=== PATIENT | female | born 1935 | race Caucasian/White ===

== ENCOUNTER 2019-06-21 18:10 | Observation (INO) | payer MEDICARE ==
[~2019-06-21] VITALS: Ht 162.6 cm; Wt 75.4 kg
[2019-06-21 18:43] VITALS: BP 193/71
[2019-06-21 18:50] LABS: BASO % 1 % (0-3); EOS # 0.2 x10^3/uL (0.0-0.7); EOS % 4 % (0-3); HEMATOCRIT 36.8 % (36.0-47.0); HEMOGLOBIN 12.3 g/dL (12.0-15.5); LYMPH # 0.9 x10^3/uL (1.0-4.8); LYMPH % 14 % (24-48); MEAN CORPUSCULAR HEMOGLOBIN 29 pg (25-35); MEAN CORPUSCULAR HGB CONC 33 g/dL (31-37); MEAN CORPUSCULAR VOLUME 88 fL (79-100); MONO # 0.6 x10^3/uL (0.0-1.1); MONO % 8 % (0-9); NEUT % 74 % (31-73); PLATELET COUNT 346 x10^3/uL (140-400); RED BLOOD COUNT 4.21 x10^6/uL (3.50-5.40); RED CELL DISTRIBUTION WIDTH 12.8 % (11.5-14.5); WHITE BLOOD COUNT 6.7 x10^3/uL (4.0-11.0)
[2019-06-21 19:13] LABS: ALBUMIN 3.3 g/dL (3.4-5.0); ALBUMIN/GLOBULIN RATIO 0.7 (1.0-1.7); CALCIUM 9.6 mg/dL (8.5-10.1); CREATININE 2.2 mg/dL (0.6-1.0); GFR 21.4; POTASSIUM 4.2 mmol/L (3.5-5.1); TOTAL BILIRUBIN 0.4 mg/dL (0.2-1.0); TOTAL PROTEIN 7.8 g/dL (6.4-8.2)
[2019-06-21] MEDS ORDERED: FUROSEMIDE 20 MG/2 ML VIAL IVP ONE (20:15)
[2019-06-21] MEDS: IPRATRPIUM/ALBUTEROL 0.5/2.5MG 3 ML NEBU. NEB SCH (20:43)
[2019-06-21] MEDS ORDERED: hydrALAZINE 20 MG/ML VIAL. IV SCH (21:00)
[2019-06-21] MEDS: METOPROLOL SUCC 24HR ER 25 MG TAB.ER.24H. PO SCH (21:56)
[2019-06-21] MEDS: hydrALAZINE 20 MG/ML VIAL. IV SCH (23:00)
--- NOTE | 2019-06-21 23:39 | RAD ---
Indication: CHF. TECHNIQUE:Portable AP chest X-ray COMPARISON: None FINDINGS: Heart is normal in size. Lungs are hyperinflated. No pneumothorax or pleural effusion. Visualized bony thorax within normal limits. IMPRESSION: No convincing evidence of interstitial pulmonary edema. Electronically signed by: Andrés Hand DO (06/21/2019 11:36 PM) [facility]
--- NOTE | 2019-06-21 23:44 | RAD ---
PQRS Compliance statement: One or more of the following individualized dose reduction techniques were utilized for this examination: 1. Automated exposure control. 2. Adjustment of the mA and/or kV according to patient size. 3. Use of iterative reconstruction technique. Indication: TIA. TECHNIQUE: CT head without IV contrast COMPARISON: None FINDINGS: No pathologic extra-axial or intra-axial fluid collection. Mild diffuse atrophy. The ventricles and basal cisterns are within normal limits. Moderate periventricular and deep white matter low-attenuation noted. No acute intracranial bleed. No focal loss of molina-white differentiation. Visualized orbits are within normal limits. No suspicious calvarial lesion. Visualized paranasal sinuses and mastoid air cells are clear. Atherosclerotic plaque seen in the bilateral cavernous segments of the ICA. IMPRESSION: No acute intracranial bleed. Moderate White matter changes likely secondary to chronic microvascular ischemic disease. If concern for acute ischemic stroke is high, please consider MRI brain. Electronically signed by: Andrés Hand DO (06/21/2019 11:41 PM) [facility]
[2019-06-22 00:19] LABS: BILIRUBIN,URINE NEG (NEG); CLARITY,URINE CLEAR; COLOR,URINE YELLOW; GLUCOSE,URINE NEG (NEG)
[2019-06-22 00:20] LABS: BACTERIA,URINE 0 /HPF (0-FEW); NITRITE,URINE NEG (NEG); RBC,URINE 0 /HPF (0-2); SQUAMOUS EPITHELIAL CELL,UR FEW /LPF; UROBILINOGEN,URINE 0.2 mg/dL (0.2 mg/dL); WBC,URINE OCC /HPF (0-4)
[2019-06-22 00:57] VITALS: BP 150/68
[2019-06-22] MEDS: IPRATRPIUM/ALBUTEROL 0.5/2.5MG 3 ML NEBU. NEB SCH (05:27)
[2019-06-22 06:21] VITALS: BP 130/71
[2019-06-22 08:02] LABS: ALBUMIN 2.8 g/dL (3.4-5.0); ALBUMIN/GLOBULIN RATIO 0.7 (1.0-1.7); CALCIUM 9.3 mg/dL (8.5-10.1); GFR 23.9; TOTAL BILIRUBIN 0.4 mg/dL (0.2-1.0); TOTAL PROTEIN 6.7 g/dL (6.4-8.2)
[2019-06-22] MEDS ORDERED: CLOP75TA PO (08:05)
[2019-06-22] MEDS ORDERED: CARV25TA2 PO (08:05)
[2019-06-22] MEDS ORDERED: LISI40TA PO (08:05)
[2019-06-22] MEDS ORDERED: CHLO50TA PO (08:05)
[2019-06-22] MEDS ORDERED: GLYB5TAB3 PO ×2 (08:05→09:14)
[2019-06-22] MEDS ORDERED: FURO20TA3 PO (08:05)
[2019-06-22] MEDS: METOPROLOL SUCC 24HR ER 25 MG TAB.ER.24H. PO SCH (09:00)
[2019-06-22] MEDS: hydrALAZINE 20 MG/ML VIAL. IV SCH (09:00)
[2019-06-22] MEDS ORDERED: HYDR20VI5 PO (09:14)
--- NOTE | 2019-06-22 10:20 | DS ---
DATE OF DISCHARGE: HOSPITAL COURSE: The patient was admitted yesterday. The patient was having some facial drooping, came into the office, her blood pressure was markedly elevated to approximately 180/100. When she came in here, her blood pressure was upwards of 193/70, respiratory rate 20, pulse 75, and afebrile. The patient has CT scan, which was unremarkable as far as any acute findings. Chest x-ray was also unremarkable. The patient made good progress during the rest of her hospitalization. She demanded to be discharged and did not want to see any other specialists and just demanded to be discharged. Her labs were basically stable. She did have an elevated creatinine of 2, which showed some degree of dehydration. She is a type 2 diabetic and was in the 100 range. The patient's cardiac enzymes were negative. The patient was also 2.8 on her protein. The patient made good progress. She was discharged home. IMPRESSION: Transient ischemic attack, hypertensive urgency, chronic kidney disease stage 3, and type 2 diabetes. Please see MRAD. Decreased activity. Low sodium diet, take her medications, and make further outpatient arrangements to follow up in the office. CAIN CONSTANTINO MD DR: JADA/sigrid JOB#: [id number] / [id number]
--- NOTE | 2019-06-22 11:12 | DISCH ---
HOME HEALTH DISCHARGE/MEDS DISCHARGE INFORMATION: Discharge Date: Jun 22, 2019 Final Diagnosis: Heart Failure Condition on Discharge: Stable CODE STATUS: Code Status: Full HOME HEALTH: Face to Face: I certify this patient is under my care and that I, or a nurse practitioner or physician's kennel assistant working with me, had a face to face encounter that meets the physician face to face encounter requirements with this patient on [Date]. Medical Condition(s): CHF Occupational Therapy For: ADL's Homebound Status Met By: Unsteady balance w/ amb, POST DISCHARGE ORDERS: Activity Instructions for Disc: Activity as tolerated Weight Bearing Status after Di: No restrictions DIET AFTER DISCHARGE: Low Sodium 2 gm CHECKS AFTER DISCHARGE: Checks after discharge: Check blood press - daily, Weigh Yourself Daily CERTIFICATION STATEMENT: Certification Statement: Based on the above finding, I certify that this patient is confined to the home and needs intermittent [facility] care, physical therapy and/or speech therapy, or continues to need occupational therapy.~ This patient is under my care, and I have initiated the establishment of the plan of care.~ This patient will be followed by myself or a community physician who will periodically review the plan of care. DISCHARGE MEDICATIONS: Home Meds Active Scripts Hydralazine Hcl (HYDRALAZINE HCL) 20 Mg/1 Ml Vial, 50 MG PO TID for HTN URGENCY for 30 Days, #90 EACH 1 Refill Prov:CAIN CONSTANTINO MD 06/22/19 Glyburide (GLYBURIDE) 5 Mg Tablet, 2 TAB PO BID for DIABETES for 30 Days, #120 TAB 1 Refill Prov:CAIN CONSTANTINO MD 06/22/19 Reported Medications Furosemide (FUROSEMIDE) 20 Mg Tablet, 1 TAB PO DAILY for DIURETICS 06/22/19 Clopidogrel Bisulfate (CLOPIDOGREL) 75 Mg Tablet, 1 TAB PO DAILY for THINNER 06/22/19 Carvedilol (CARVEDILOL) 25 Mg Tablet, 1 TAB PO BID for HYPERTENSION 06/22/19 Lisinopril (LISINOPRIL) 40 Mg Tablet, 1 TAB PO DAILY for HYPERTENSION 06/22/19 Discontinued Reported Medications Chlorthalidone (CHLORTHALIDONE) 50 Mg Tablet, 1 TAB PO DAILY for HYPERTENSION 06/22/19 CAIN CONSTANTINO MD Jun 22, 2019 11:12
--- NOTE | 2019-06-23 04:09 | EKG ---
[address] [address] Test Date: 2019-06-21 Test Time: 22:17:33 Pat Name: ESTEBAN POLLARD Department: Room: 103 A Gender: F Strategic Planner: : 1935 Requested By: CAIN CONSTANTINO Order Number: [id number] Reading MD: Gerhard Espinal Measurements Intervals [place] Rate: 72 P: 33 VA: 190 QRS: 1 QRSD: 94 T: 27 QT: 380 QTc: 418 Interpretive Statements SINUS RHYTHM QRS(T) CONTOUR ABNORMALITY CONSISTENT WITH INFERIOR INFARCT PROBABLY OLD Electronically Signed On 06-27-2019 15:02:49 HOG BUYER by Gerhard Espinal
== END 2019-06-22 10:42 | disposition home health service (06) ==
LOC: INTOOBSV 18:10 → 1 SOUTH 18:10
PROVIDERS: ADMIT Family Medicine; ATTEND Family Medicine
DX: G45.9 Transient cerebral ischemic attack, unspecified (principal); I16.0 Hypertensive urgency; E11.22 Type 2 diabetes mellitus with diabetic chronic kidney disease; N18.3 Chronic kidney disease, stage 3 (moderate); E86.0 Dehydration; Z79.899 Other long term (current) drug therapy
CPT/HCPCS: 36415; 70450; 71045; 80053; 81001; 82550; 82947; 83605; 83880; 84484; 85025; 85379; 87086; 93005; 94640; 96374; 96375; G0378; G0379; J0360; J7620

== ENCOUNTER → 2020-02-01 | Outpatient (CLI) | payer MEDICARE ==
[~2020-02-01] MED LIST: CARV25TA2 PO; CHLO50TA PO; CLOP75TA PO; FURO20TA3 PO; GLYB5TAB3 PO; HYDR20VI5 PO; LISI40TA PO
[2020-02-01 18:27] LABS: BASO % 1 % (0-3); EOS # 0.2 x10^3/uL (0.0-0.7); EOS % 6 % (0-3); HEMATOCRIT 32.9 % (36.0-47.0); LYMPH # 0.9 x10^3/uL (1.0-4.8); LYMPH % 20 % (24-48); MEAN CORPUSCULAR HEMOGLOBIN 29 pg (25-35); MEAN CORPUSCULAR HGB CONC 34 g/dL (31-37); MEAN CORPUSCULAR VOLUME 87 fL (79-100); MONO # 0.5 x10^3/uL (0.0-1.1); MONO % 11 % (0-9); NEUT # 2.6 x10^3uL (1.8-7.7); NEUT % 62 % (31-73); PLATELET COUNT 330 x10^3/uL (140-400); RED BLOOD COUNT 3.76 x10^6/uL (3.50-5.40); RED CELL DISTRIBUTION WIDTH 12.9 % (11.5-14.5); WHITE BLOOD COUNT 4.3 x10^3/uL (4.0-11.0)
[2020-02-01 18:41] LABS: ALBUMIN/GLOBULIN RATIO 0.7 (1.0-1.7); CALCIUM 9.6 mg/dL (8.5-10.1); CREATININE 2.1 mg/dL (0.6-1.0); GFR 22.5; POTASSIUM 3.8 mmol/L (3.5-5.1); TOTAL BILIRUBIN 0.3 mg/dL (0.2-1.0); TOTAL PROTEIN 7.3 g/dL (6.4-8.2)
[2020-02-02 14:50] LABS: FREE T4 0.95 ng/dL (0.76-1.46); THYROID STIM HORMONE (TSH) 6.403 uIU/mL (0.358-3.740)
== END | disposition home or self-care (01) ==
LOC: LAB 17:40
PROVIDERS: ATTEND Family Medicine
DX: E11.65 Type 2 diabetes mellitus with hyperglycemia (principal); N39.0 Urinary tract infection, site not specified; N18.3 Chronic kidney disease, stage 3 (moderate); E03.9 Hypothyroidism, unspecified
CPT/HCPCS: 36415; 80053; 83540; 84439; 84443; 84466; 85025

== ENCOUNTER 2020-07-02 13:47 | Inpatient (IN) | payer MEDICARE ==
[~2020-07-02] VITALS: Ht 160 cm; Wt 62.4 kg
--- NOTE | 2020-07-02 14:31 | PHYS DOC ---
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 She lives alone and handles most ADLs with assist daily from visiting family members. Reports left hand pain, swelling, redness and warm that has increased gradually over past 1 week without inciting event or trauma. She has also felt more weak and had difficulty tolerating PO intake and ambulating which is unusual for her. Daughter denies any known fever but is concerned about patient's ability to live at home alone safely in current condition. Patient who has full capacity reports she would like to be a full code, daughter in agreement with this decision. Daughter is wanting information on how to become POA. Review of Systems Review of Systems Fourteen body systems of review of systems have been reviewed. See HPI for pertinent positives and negative responses, other maldonado all other systems are negative, non-pertinent or non-contributory Allergies Allergies Allergies Coded Allergies Type Severity Reaction Last Updated Verified No Known Drug Allergies 07/02/20 No Physical Exam Physical Exam Constitutional: Well developed, well nourished, no acute distress, non-toxic appearance. HENT: Normocephalic, atraumatic, bilateral external ears normal, oropharynx moist, no oral exudates, nose normal. Eyes: PERRLA, EOMI, conjunctiva normal, no discharge. Neck: Normal range of motion, no tenderness, supple, no stridor. Cardiovascular: Heart rate regular, sinus rhythm, no murmurs rubs or gallops Lungs & Thorax: Bilateral breath sounds clear to auscultation Abdomen: Bowel sounds normal, soft, no tenderness, no masses, no pulsatile masses. Nonsurgical abdomen, no peritoneal signs Skin: Warm, dry, no rash. Warmth to left wrist without visible and/or palpable abnormalities Back: No tenderness, no CVA tenderness. Extremities: No cyanosis, no clubbing, ROM intact, no edema. Tenderness over left wrist with palpation without palpable abnormalities, fluid collection or other defects Neurologic: Alert and oriented X 3, CN 2-12 intact, normal motor & sensory function, no focal deficits noted. Unstable gait Psychologic: Affect normal, judgement normal, mood normal. Current Patient Data Vital Signs Vital Signs Date Time Temp Pulse Resp B/P (MAP) Pulse Ox O2 Delivery O2 Flow Rate FiO2 07/02/20 14:02 98.8 113 26 180/96 (124) 97 Room Air Lab Results Laboratory Tests Test 07/02/20 14:21 Glucose (Fingerstick) 428 mg/dL (70-99) H EKG EKG EKG ordered and interpreted by myself at 1429 hrs. as sinus tachycardia at 106 bpm, unremarkable intervals, no axis deviation, no ischemic findings, no STEMI Radiology/Procedures Radiology/Procedures Indications: Fall and pain AP view of the pelvis: The hip joints are symmetric. No acute fracture or dislocation or diastases or lytic process is seen. Generalized osteopenia is seen. 3 view study of the left wrist: No acute fracture or dislocation or lytic process is seen. Old healed fracture of the fifth metacarpal bone is seen. The scaphoid bone appears intact. Generalized osteopenia is seen. IMPRESSION: No acute fracture. Electronically signed by: Filippo Powell MD (07/02/2020 3:33 PM) [id number] CHEST AP ONLY Clinical indications: Fall. COMPARISON: June 21, 2019. Findings: No acute lung infiltrate or pleural effusion or pulmonary edema or lung mass or pneumothorax is seen. The heart size, pulmonary vasculature, mediastinum and both la are stable. Impression: No acute radiographic abnormality is seen. Electronically signed by: Filippo Powell MD (07/02/2020 3:31 PM) [id number] Heart Score HEART Score for Chest Pain: HEART Score for Chest Pain Response (Comments) Value History Slighlty/Non-Suspicious 0 ECG Normal 0 Age > 65 2 Risk Factors >3 Risk Factors or Hx CAD 2 Troponin < Normal Limit 0 Total 4 Risk Factors: Risk Factors: DM, Current or recent (<one month) smoker, HTN, HLP, family history of CAD, obesity. Risk Scores: Risk Factors: DM, Current or recent (<one month) smoker, HTN, HLP, family history of CAD, obesity. Course & Med Decision Making Course & Med Decision Making Pertinent Labs and Imaging studies reviewed. (See chart for details) Patient changed to DNR Discussed my concern for left hand cellulitis, 2g rocephin administered Patient has hyperglycemia and electrolyte abnormalities that will require inpatient management Patient unable to safely ambulate and care for self at home. Does not have sufficient care at home to assist through personal deficits. Unsafe to disposition home; at minimum plan admission for home safety evaluation, social and physical therapy evaluations, possible placement PCP, Dr. Constantino, contacted and case discussed, he agreed for admission under his care Patient and daughter notified of plan of care and amenable, all questions and concerns addressed prior to admission Dragon Disclaimer Dragon Disclaimer This electronic medical record was generated, in whole or in part, using a voice recognition dictation system. Departure Departure: Impression: Primary Impression: Cellulitis of left wrist Additional Impressions: Electrolyte abnormality Hyperglycemia due to type 2 diabetes mellitus Disposition: ADMITTED INPT THIS HOSP Admitting Physician: Michael Constantino Referrals: MICHAEL CONSTANTINO MD (PCP) Problem Qualifiers KAMRANRITU Jul 02, 2020 14:31
--- NOTE | 2020-07-02 14:53 | EKG ---
[address] [address] Test Date: 2020-07-02 Test Time: 14:26:29 Pat Name: ESTEBAN POLLARD Department: Room: Gender: F Database Administration Manager: ROBERT : 1935 Requested By: RITU ANDREW Order Number: [id number] Reading MD: Gerhard Espinal Measurements Intervals [place] Rate: 106 P: 39 IN: 170 QRS: 9 QRSD: 84 T: 35 QT: 326 QTc: 435 Interpretive Statements SINUS TACHYCARDIA QRS(T) CONTOUR ABNORMALITY CONSISTENT WITH INFERIOR INFARCT PROBABLY OLD ABNORMAL ECG Electronically Signed On 07-03-2020 10:26:12 DOOR OPENER by Gerhard Espinal
[2020-07-02] MEDS ORDERED: CARVEDILOL 12.5 MG TABLET PO SCH (15:30)
--- NOTE | 2020-07-02 15:34 | RAD ---
CHEST AP ONLY Clinical indications: Fall. COMPARISON: June 21, 2019. Findings: No acute lung infiltrate or pleural effusion or pulmonary edema or lung mass or pneumothorax is seen. The heart size, pulmonary vasculature, mediastinum and both la are stable. Impression: No acute radiographic abnormality is seen. Electronically signed by: Filippo Powell MD (07/02/2020 3:31 PM) [id number]
--- NOTE | 2020-07-02 15:36 | RAD ---
Indications: Fall and pain AP view of the pelvis: The hip joints are symmetric. No acute fracture or dislocation or diastases or lytic process is seen. Generalized osteopenia is seen. 3 view study of the left wrist: No acute fracture or dislocation or lytic process is seen. Old healed fracture of the fifth metacarpal bone is seen. The scaphoid bone appears intact. Generalized osteopenia is seen. IMPRESSION: No acute fracture. Electronically signed by: Filippo Powell MD (07/02/2020 3:33 PM) [id number]
[2020-07-02 15:47] LABS: BASO % 0 % (0-3); EOS % 0 % (0-3); HEMATOCRIT 40.8 % (36.0-47.0); HEMOGLOBIN 13.1 g/dL (12.0-15.5); LYMPH # 0.8 x10^3/uL (1.0-4.8); LYMPH % 7 % (24-48); MEAN CORPUSCULAR HEMOGLOBIN 28 pg (25-35); MEAN CORPUSCULAR HGB CONC 32 g/dL (31-37); MEAN CORPUSCULAR VOLUME 87 fL (79-100); MONO # 0.8 x10^3/uL (0.0-1.1); MONO % 7 % (0-9); NEUT # 10.1 x10^3uL (1.8-7.7); NEUT % 86 % (31-73); PLATELET COUNT 320 x10^3/uL (140-400); RED BLOOD COUNT 4.67 x10^6/uL (3.50-5.40); RED CELL DISTRIBUTION WIDTH 13.5 % (11.5-14.5); WHITE BLOOD COUNT 11.7 x10^3/uL (4.0-11.0)
[2020-07-02 16:01] LABS: CALCIUM 10.2 mg/dL (8.5-10.1); CREATININE 1.8 mg/dL (0.6-1.0); GFR 26.9; POTASSIUM 5.3 mmol/L (3.5-5.1)
[2020-07-02 16:12] LABS: ALBUMIN 3.2 g/dL (3.4-5.0); ALBUMIN/GLOBULIN RATIO 0.7 (1.0-1.7); TOTAL BILIRUBIN 0.8 mg/dL (0.2-1.0); TOTAL PROTEIN 7.9 g/dL (6.4-8.2)
[2020-07-02] MEDS ORDERED: IV NORMAL SALINE 50ML 50 ML ONE (16:18)
[2020-07-02] MEDS ORDERED: cefTRIAXone SODIUM 1 GM VIAL ONE (16:19)
[2020-07-02] MEDS ORDERED: IV NORMAL SALINE 1,000ML 1,000 ML IV ONE (16:30)
[2020-07-02] MEDS ORDERED: DEXTROSE 50% 25 GM / 50ML DISP.SYRIN. IV PRN (18:45)
[2020-07-02] MEDS ORDERED: ACETAMINOPHEN 500 MG TABLET PO PRN (18:45)
[2020-07-02] MEDS ORDERED: INSULIN LISPRO 300 UNITS/3 ML VIAL. SQ SCH (18:45)
[2020-07-02] MEDS ORDERED: hydrALAZINE 20 MG/ML VIAL. IV ONE (18:45)
[2020-07-02 19:00] VITALS: BP_SYST 159; BP_SYST 174; BP_DIAS 80; BP_DIAS 81
[2020-07-02] MEDS ORDERED: LORazepam 0.5 MG TABLET PO PRN (19:30)
[2020-07-02] MEDS ORDERED: INSULIN GLARGINE SYRINGE. SQ SCH (21:00)
[2020-07-02] MEDS ORDERED: hydrALAZINE 25 MG TABLET PO SCH (21:00)
[2020-07-02 23:08] VITALS: BP 98/45
[2020-07-03 05:23] VITALS: BP 174/69
[2020-07-03 06:35] LABS: CALCIUM 9.4 mg/dL (8.5-10.1); CREATININE 1.6 mg/dL (0.6-1.0); GFR 30.8; POTASSIUM 3.6 mmol/L (3.5-5.1)
[2020-07-03] MEDS: INSULIN LISPRO 300 UNITS/3 ML VIAL. SQ SCH ×3 (08:00→17:00)
[2020-07-03] MEDS: INSULIN GLARGINE SYRINGE. SQ SCH ×2 (09:15→20:13)
[2020-07-03] MEDS ORDERED: VANCOMYCIN PER PHARMACY MC PRN (09:30)
[2020-07-03] MEDS ORDERED: VANCOMYCIN 1.5 GM in IV NORMAL SALINE 500ML 500 ML IV ONE (10:00)
[2020-07-03 11:00] VITALS: BP 165/60
[2020-07-03] MEDS: FUROSEMIDE 20 MG TABLET PO SCH (12:12)
[2020-07-03] MEDS: LISINOPRIL 20 MG TABLET PO SCH (12:12)
[2020-07-03] MEDS: CLOPIDOGREL BISULFATE 75 MG TABLET PO SCH (12:12)
[2020-07-03] MEDS: glyBURIDE 5 MG TABLET PO SCH ×2 (12:13→17:00)
[2020-07-03] MEDS: CARVEDILOL 12.5 MG TABLET PO SCH ×2 (12:13→17:00)
[2020-07-03 15:00] VITALS: BP 136/52
[2020-07-03 19:00] VITALS: BP 134/58
[2020-07-03 22:21] LABS: BILIRUBIN,URINE NEG (NEG); CLARITY,URINE HAZY; COLOR,URINE YELLOW; GLUCOSE,URINE 250 mg/dL (NEG)
[2020-07-03 22:22] LABS: BACTERIA,URINE MOD /HPF (0-FEW); NITRITE,URINE NEG (NEG); RBC,URINE 0 /HPF (0-2); SQUAMOUS EPITHELIAL CELL,UR OCC /LPF; UROBILINOGEN,URINE 0.2 mg/dL (0.2 mg/dL); WBC,URINE >40 /HPF (0-4)
[2020-07-03 23:08] VITALS: BP 98/50
--- NOTE | 2020-07-04 00:02 | HP ---
ADMIT DATE: 07/02/2020 HISTORY OF PRESENT ILLNESS: An 85-year-old female who came in through the Emergency Room. The patient came in with her daughter. The patient lives alone. The patient has increased left hand pain and swelling from falling for the past week inciting no obvious trauma, but appeared that she did have some type of injury to that area. No broken bones, but was inflamed and irritated. The patient was unable to take care of herself, as a result of this, the patient was admitted. She did note her inability to take care of herself at home. The daughter notes she is the DPOA and the patient is unable to take care of her ADLs at home. PAST MEDICAL HISTORY: Cataracts, esophageal dilatation, heart attack, CHF, hypertension, abdominal surgery, diabetes, influenza. FAMILY HISTORY: Positive for heart disease. HOME MEDICATIONS: Include that of Plavix, hydralazine 50, carvedilol 25, lisinopril 40, furosemide, glyburide 5 mg 2 tablets b.i.d. ALLERGIES: She has no known allergies. SOCIAL HISTORY: The patient used to have a history of smoking, but has not smoked for several years. Denies alcohol or drug use. She is a DNR. REVIEW OF SYSTEMS: The patient is somewhat confused. She has some mild dementia. She denies shortness of breath, chest pain, does have swelling and pain in her left wrist, hand and forearm. The patient otherwise does not recognize any fever or chilling, but does note generalized weakness and lethargy, not eating very well at all. PHYSICAL EXAMINATION: GENERAL: This is a pleasant white female looking her stated age, perhaps a little bit older, dehydrated. VITAL SIGNS: Blood pressure 180/90, respiratory rate 26, pulse 110. Presently afebrile, but interestingly enough, her ____ did drop to 96.9. NEUROLOGIC: The patient otherwise is alert, slightly confused, generalized weakness. Eyes: PERRL, EOMI. Mouth and throat: Poor dentition. NECK: Supple. LUNGS: Diminished throughout, poor movement of air, but basically clear. CARDIOVASCULAR: Irregularly irregular rhythm. ABDOMEN: Soft, nontender. EXTREMITIES: No clubbing, cyanosis. Trace edema noted peripherally in the left wrist, hand and forearm and the dorsal surface was inflamed, swollen, red and hot to touch, very painful. LABORATORY DATA: X-ray of the wrist demonstrated no acute fractures, generalized osteopenia; however, the patient will be placed on IV antibiotic therapy. Advised to splint. The patient also has marked urinary retention, 600 mL bladder and we will send her urine off for culture. She is also a diabetic. Her C-reactive protein is greater than 150. IMPRESSION: Cellulitis to the left wrist, forearm and hand, type 2 diabetes, mild dementia, Alzheimer type, chronic kidney disease stage 3, hypothermia, uncontrolled diabetes, sepsis, moderate protein malnutrition. PLAN: As above. Continue to monitor the patient. Continue on IV vancomycin and make further evaluation on her as indicated. CAIN CONSTANTINO MD DR: JADA/sigrid JOB#: [id number] / [id number]
[2020-07-04 05:56] LABS: BASO % 1 % (0-3); EOS # 0.1 x10^3/uL (0.0-0.7); EOS % 1 % (0-3); HEMATOCRIT 31.8 % (36.0-47.0); HEMOGLOBIN 10.3 g/dL (12.0-15.5); LYMPH # 1.2 x10^3/uL (1.0-4.8); LYMPH % 18 % (24-48); MEAN CORPUSCULAR HEMOGLOBIN 28 pg (25-35); MEAN CORPUSCULAR HGB CONC 32 g/dL (31-37); MEAN CORPUSCULAR VOLUME 86 fL (79-100); MONO # 0.5 x10^3/uL (0.0-1.1); MONO % 7 % (0-9); NEUT # 5.1 x10^3uL (1.8-7.7); NEUT % 74 % (31-73); PLATELET COUNT 311 x10^3/uL (140-400); RED BLOOD COUNT 3.68 x10^6/uL (3.50-5.40); RED CELL DISTRIBUTION WIDTH 13.4 % (11.5-14.5); WHITE BLOOD COUNT 6.9 x10^3/uL (4.0-11.0)
[2020-07-04 06:05] LABS: CREATININE 1.5 mg/dL (0.6-1.0); GFR 33.2; POTASSIUM 3.2 mmol/L (3.5-5.1)
[2020-07-04 07:00] VITALS: BP 162/66
[2020-07-04] MEDS: glyBURIDE 5 MG TABLET PO SCH (07:38)
[2020-07-04] MEDS: FUROSEMIDE 20 MG TABLET PO SCH (07:38)
[2020-07-04] MEDS: CLOPIDOGREL BISULFATE 75 MG TABLET PO SCH (07:39)
[2020-07-04] MEDS ORDERED: POTASSIUM BICARB 10 MEQ EFFERVESCENT TABLET. PO ONE (07:45)
[2020-07-04] MEDS: INSULIN LISPRO 300 UNITS/3 ML VIAL. SQ SCH ×2 (07:45→11:30)
[2020-07-04] MEDS: LISINOPRIL 20 MG TABLET PO SCH (07:48)
[2020-07-04 07:50] VITALS: BP 162/66
[2020-07-04] MEDS: CARVEDILOL 12.5 MG TABLET PO SCH (07:50)
[2020-07-04] MEDS: INSULIN GLARGINE SYRINGE. SQ SCH (09:00)
[2020-07-04] MEDS ORDERED: HYDR-2869 PO (11:08)
[2020-07-04] MEDS ORDERED: CEPH500C PO (11:08)
--- NOTE | 2020-07-04 11:10 | DISCH ---
HOME HEALTH DISCHARGE/MEDS DISCHARGE INFORMATION: Discharge Date: Jul 04, 2020 Final Diagnosis: Problems Medical Problems: (1) Cellulitis Status: Acute (2) Cellulitis of left wrist Status: Acute (3) Electrolyte abnormality Status: Acute (4) Hyperglycemia due to type 2 diabetes mellitus Status: Acute Condition on Discharge: Stable CODE STATUS: Code Status: DNR/DNI HOME HEALTH: Face to Face: I certify this patient is under my care and that I, or a nurse practitioner or physician's assistant professor in family studies working with me, had a face to face encounter that meets the physician face to face encounter requirements with this patient on July. Medical Condition(s): DM, Falls, HTN Halfway For: Assess Cardiopulm Status, Assess & Educate Safety, Diabetic Care, Medication Management, Wound Care Physical Therapy For: Evalulation/Treatment Occupational Therapy For: Evaluation/Treatment Homebound Status Met By: Unsteady balance w/ amb,, Poor cognition POST DISCHARGE ORDERS: Activity Instructions for Disc: No restrictions Weight Bearing Status after Di: No restrictions DIET AFTER DISCHARGE: ADA CHECKS AFTER DISCHARGE: Checks after discharge: Check blood press - daily, Check blood sugar, ac/hs CERTIFICATION STATEMENT: Certification Statement: Based on the above finding, I certify that this patient is confined to the home and needs intermittent shelter care, physical therapy and/or speech therapy, or continues to need occupational therapy.~ This patient is under my care, and I have initiated the establishment of the plan of care.~ This patient will be followed by myself or a community physician who will periodically review the plan of care. DISCHARGE MEDICATIONS: Home Meds Active Scripts Hydralazine Hcl (HYDRALAZINE HCL) 20 Mg/1 Ml Vial, 50 MG PO TID for HTN URGENCY for 30 Days, #90 EACH 1 Refill Prov:CAIN CONSTANTINO MD 06/22/19 Glyburide (GLYBURIDE) 5 Mg Tablet, 2 TAB PO BID for DIABETES for 30 Days, #120 TAB 1 Refill Prov:CAIN CONSTANTINO MD 06/22/19 Reported Medications Furosemide (FUROSEMIDE) 20 Mg Tablet, 1 TAB PO DAILY for DIURETICS 06/22/19 Clopidogrel Bisulfate (CLOPIDOGREL) 75 Mg Tablet, 1 TAB PO DAILY for THINNER 06/22/19 Carvedilol (CARVEDILOL) 25 Mg Tablet, 1 TAB PO BID for HYPERTENSION 06/22/19 Lisinopril (LISINOPRIL) 40 Mg Tablet, 1 TAB PO DAILY for HYPERTENSION 06/22/19 CAIN CONSTANTINO MD Jul 04, 2020 11:10
[2020-07-05] MEDS ORDERED: VANCOMYCIN 1 GM in IV NORMAL SALINE 250ML 250 ML IV SCH (10:00)
== END 2020-07-04 12:45 | disposition home health service (06) | DRG 871 ==
LOC: ER 13:47 → ICU 17:40
PROVIDERS: ADMIT Family Medicine; ATTEND Family Medicine
DX: A41.9 Sepsis, unspecified organism (principal); N17.0 Acute kidney failure with tubular necrosis; E44.0 Moderate protein-calorie malnutrition; L03.114 Cellulitis of left upper limb; I13.0 Hypertensive heart and chronic kidney disease with heart failure and stage 1 through stage 4 chronic kidney disease, or unspecified chronic kidney disease; E11.65 Type 2 diabetes mellitus with hyperglycemia; F02.80 Dementia in other diseases classified elsewhere, unspecified severity, without behavioral disturbance, psychotic disturbance, mood disturbance, and anxiety; G30.9 Alzheimer's disease, unspecified; I50.9 Heart failure, unspecified; Z66 Do not resuscitate; Z60.2 Problems related to living alone; E87.8 Other disorders of electrolyte and fluid balance, not elsewhere classified; N18.30 Chronic kidney disease, stage 3 unspecified; T68.XXXA Hypothermia, initial encounter; X31.XXXA Exposure to excessive natural cold, initial encounter; I25.2 Old myocardial infarction; Z87.891 Personal history of nicotine dependence; Z82.49 Family history of ischemic heart disease and other diseases of the circulatory system
CPT/HCPCS: 36415; 71045; 72170; 73110; 80048; 80053; 81001; 82803; 82947; 83605; 84484; 85025; 86140; 87040; 87086; 93005; 96365; 99285; J0360; J0696; J1815; J3370; J7040; 97530; 97535; J7030

== ENCOUNTER 2020-07-09 17:27 | Emergency (ER) | payer MEDICARE ==
[~2020-07-09] VITALS: Ht 160 cm; Wt 62.4 kg
[~2020-07-09 17:27] MED LIST changes: +CEPH500C PO; +HYDR-2869 PO
[2020-07-09 17:45] VITALS: BP 208/85
[2020-07-09] MEDS ORDERED: IV NORMAL SALINE 1,000ML 1,000 ML IV ONE (18:00)
[2020-07-09] MEDS ORDERED: 0.9 % SODIUM CHLORIDE 10 ML DISP.SYRIN. IV PRN (18:00)
--- NOTE | 2020-07-09 18:12 | EKG ---
[address] [address] Test Date: 2020-07-09 Test Time: 18:08:22 Pat Name: ESTEBAN POLLARD Department: Room: Gender: F Coverage Analyst: FUNMI : 1935 Requested By: GLO ESTEVES Order Number: [id number] Reading MD: Measurements Intervals [place] Rate: 77 P: 15 MO: 190 QRS: 9 QRSD: 84 T: 62 QT: 372 QTc: 423 Interpretive Statements SINUS RHYTHM QRS(T) CONTOUR ABNORMALITY CONSISTENT WITH INFERIOR INFARCT PROBABLY OLD ABNORMAL ECG RI6.02 No previous ECG available for comparison
--- NOTE | 2020-07-09 18:57 | PHYS DOC ---
Past History Past Medical History: Dementia, Diabetes, Hypertension, MD Past Surgical History: Other Additional Past Surgical Histo: ABD HERNIA REPAIR CHILD Alcohol Use: None Drug Use: None Adult General Chief Complaint Chief Complaint: CELLULITIS HPI HPI Patient is a 85-year-old female patient with history of hypertension, dementia, MD, who presents to the ED today with the daughter. Daughter states patient is confused not following directions. Daughter states patient was discharged from the hospital a few days ago and she feels mother was discharged 1 day earlier than normal, she states she wants patient admitted so that she can be taken to a rehab facility. Daughter states patient was admitted the end of June for left upper extremity cellulitis. She states patient's left arm is warm and this could be cellulitis again. Review of Systems Review of Systems Constitutional: Denies fever or chills [] Eyes: Denies change in visual acuity, redness, or eye pain [] HENT: Denies nasal congestion or sore throat [] Respiratory: Denies cough or shortness of breath [] Cardiovascular: No additional information not addressed in HPI [] GI: Denies abdominal pain, nausea, vomiting, bloody stools or diarrhea [] : Denies dysuria or hematuria [] Musculoskeletal: Denies back pain or joint pain [] Integument: Daughter reports patient has cellulitis of the left hand Neurologic: Daughter reports patient altered mental status. Denies headache, focal weakness or sensory changes [] All other systems were reviewed and found to be within normal limits, except as documented in this note. Current Medications Current Medications Current Medications Medications (Trade) Dose Ordered Sig/Rachelle Start Time Stop Time Status Last Admin Dose Admin Sodium Chloride 1,000 ml @ 1,000 mls/hr 1X ONCE 07/09/20 18:00 07/09/20 18:59 Sodium Chloride (Normal Saline Flush) 10 ml QSHIFT PRN 07/09/20 18:00 Allergies Allergies Allergies Coded Allergies Type Severity Reaction Last Updated Verified No Known Drug Allergies 07/02/20 No Physical Exam Physical Exam Constitutional: Well developed, well nourished, no acute distress, non-toxic appearance. [] HENT: Normocephalic, atraumatic, bilateral external ears normal, oropharynx moist, no oral exudates, nose normal. [] Eyes: PERRLA, EOMI, conjunctiva normal, no discharge. [] Neck: Normal range of motion, no tenderness, supple, no stridor. [] Cardiovascular:Heart rate regular rhythm, no murmur [] Lungs & Thorax: Bilateral breath sounds clear to auscultation [] Abdomen: Bowel sounds normal, soft, no tenderness, no masses, no pulsatile masses. [] Skin: Warm, dry, no erythema, no rash. [] Back: No tenderness, no CVA tenderness. [] Extremities: No tenderness, no cyanosis, no clubbing, ROM intact, no edema. [] Neurologic: Alert and oriented X 3, normal motor function, normal sensory function, no focal deficits noted. [] Psychologic: harsh Current Patient Data Vital Signs Vital Signs Date Time Temp Pulse Resp B/P (MAP) Pulse Ox O2 Delivery O2 Flow Rate FiO2 07/09/20 17:45 97.7 79 16 208/85 (126) 97 Room Air EKG EKG [address] Aquino sinus rhythm heart rate 77 no STEMI [] Radiology/Procedures Radiology/Procedures [] Heart Score Risk Factors: Risk Factors: DM, Current or recent (<one month) smoker, HTN, HLP, family history of CAD, obesity. Risk Scores: Risk Factors: DM, Current or recent (<one month) smoker, HTN, HLP, family history of CAD, obesity. Course & Med Decision Making Course & Med Decision Making Pertinent Labs and Imaging studies reviewed. (See chart for details) This is a 85-year-old female patient presenting to the ED today with her daugh ter who states patient is altered and left upper extremity is warm and she believes patient has cellulitis again. She said patient was discharged from the hospital a couple days ago for cellulitis and she feels patient was discharged 1 day early. She would like patient to be admitted and then transferred to a rehab facility. I spoke to patient personally. Patient is alert oriented x4 asking why she is in the ED and refusing care. She states she does not want any lab work and will not stay in the hospital. She is requesting to be discharged I called patient's PCP Dr. Johnson who is familiar with this patient and daughter who stated if patient is answering all the orientation questions she can be discharged to home. I spoke to patient's daughter and requested her to call Dr. Johnson tomorrow and they can arrange rehab admission as an outpatient. Dragon Disclaimer Dragon Disclaimer This electronic medical record was generated, in whole or in part, using a voice recognition dictation system. Departure Departure: Impression: Primary Impression: Encounter for medical screening examination Additional Impression: High blood pressure Disposition: 01 DC HOME SELF CARE/HOMELESS Condition: STABLE Referrals: CAIN CONSTANTINO MD (PCP) Call his office tomorrow and set up a follow-up appointment Patient Instructions: Hypertension, Medical Screening Exam Additional Instructions: You were evaluated in the emergency room, you are alert and oriented in the ED. Your daughter needs to call Dr. Johnson tomorrow and set up a follow-up appointment for you. Take your blood pressure medicine as soon as you get home Problem Qualifiers Additional Impression: High blood pressure Hypertension type: unspecified Qualified Codes: I10 - Essential (primary) hypertension [employer] Jul 09, 2020 18:57
--- NOTE | 2020-07-09 19:19 | RAD ---
Chest AP portable at 1814: Reason for examination: Altered mental status. Comparison is made to previous study dated 06/15/2020. The heart size is upper normal. Mediastinum is unremarkable aside from some tortuosity of the aorta which is unchanged. Lung robertson show no definite infiltrates or pleural effusions. No acute bony abnormalities are seen. Impression: No acute cardiopulmonary disease. CT head without contrast: Comparison is made to previous study dated 06/21/2019. Axial images were obtained through the brain with no contrast administered. Exposure: One or more of the following individualized dose reduction techniques were utilized for this examination: 1. Automated exposure control 2. Adjustment of the mA and/or kV according to patient size 3. Use of iterative reconstruction technique. Ventricular systems are symmetric and not abnormally dilated. No midline shift is seen. There is no evidence of intracranial hemorrhage. There are patchy deep white matter changes in the frontal and parietal lobes consistent with microvascular ischemia. There is however new decreased density involving the right occipital lobe consistent with acute infarct. No abnormalities of seen at the orbits. Paranasal sinuses and mastoid air cells are clear. No acute skull abnormality is seen. IMPRESSION: Generalized cerebral atrophy with microvascular ischemic changes. 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 No intracranial hemorrhage evident. Electronically signed by: Beverley Martell MD (07/09/2020 7:16 PM) JENNIFER
== END 2020-07-09 19:06 | disposition home or self-care (01) ==
LOC: ER 17:27
DX: Z00.00 Encounter for general adult medical examination without abnormal findings (principal); I10 Essential (primary) hypertension; F03.90 Unspecified dementia, unspecified severity, without behavioral disturbance, psychotic disturbance, mood disturbance, and anxiety; E11.9 Type 2 diabetes mellitus without complications; I25.2 Old myocardial infarction
CPT/HCPCS: 70450; 71045; 93005; 99284

== ENCOUNTER 2020-07-13 12:49 | Emergency (ER) | payer MEDICARE ==
[~2020-07-13] VITALS: Ht 162.6 cm; Wt 63.0 kg
--- NOTE | 2020-07-13 13:54 | RAD ---
Examination: XR CHEST 1V History: Reason: confusion / Spl. Instructions: / History: Comparison/Correlation: 07/09/2020 Findings: Frontal view chest was obtained. Heart size is normal. No pneumothorax. Mild pulmonary hype rinflation may be present but similar to prior exam. No new infiltrate. No definite effusion. Minimal costophrenic angle blunting which probably represents pleural thickening is evident. Impression: No active disease. Electronically signed by: Suman Saavedra MD (07/13/2020 1:52 PM) [id number]
--- NOTE | 2020-07-13 13:54 | RAD ---
Examination: CT ORBITS/SELLA WITHOUT CONTRAST, CT HEAD/BRAIN WO History: Reason: confusion, blurry vision / Spl. Instructions: / History: Comparison/Correlation: None Findings: Axial images of the head and orbits were obtained. Sagittal and coronal reformatted images of the orbits were provided. Advanced atrophy and chronic ischemic changes within white matter is noted. Right occipital lobe acut e infarct again seen and is slightly less edematous appearance. No hemorrhagic transformation is iden tified. No significant change in mass effect. No new infarcts. Old left external capsule lacunar infa rct noted. Orbits are intact. Globes and optic nerves are unremarkable. Extraocular muscles are normal. Temporomandibular joints are unremarkable. Dextroconvexity of the bony nasal septum identified. Impression: Right occipital lobe infarct again identified. It is somewhat less edematous appearance as compared t o previous exam. No intracranial hemorrhage. The globes and optic nerves are unremarkable. Orbits are unremarkable. Electronically signed by: Suman Saavedra MD (07/13/2020 1:51 PM) [id number]
[2020-07-13 14:34] LABS: BASO % 1 % (0-3); EOS # 0.1 x10^3/uL (0.0-0.7); EOS % 3 % (0-3); HEMATOCRIT 34.6 % (36.0-47.0); HEMOGLOBIN 11.1 g/dL (12.0-15.5); LYMPH # 1.1 x10^3/uL (1.0-4.8); LYMPH % 22 % (24-48); MEAN CORPUSCULAR HEMOGLOBIN 28 pg (25-35); MEAN CORPUSCULAR HGB CONC 32 g/dL (31-37); MEAN CORPUSCULAR VOLUME 87 fL (79-100); MONO # 0.4 x10^3/uL (0.0-1.1); MONO % 8 % (0-9); NEUT # 3.4 x10^3uL (1.8-7.7); NEUT % 67 % (31-73); PLATELET COUNT 297 x10^3/uL (140-400); RED BLOOD COUNT 3.99 x10^6/uL (3.50-5.40); RED CELL DISTRIBUTION WIDTH 13.4 % (11.5-14.5); WHITE BLOOD COUNT 5.1 x10^3/uL (4.0-11.0)
[2020-07-13 14:40] LABS: CALCIUM 9.3 mg/dL (8.5-10.1); CREATININE 1.4 mg/dL (0.6-1.0); GFR 35.9
[2020-07-13 14:41] LABS: BARBITURATES NEG (NEG); BENZODIAZEPINES NEG (NEG); CANNABINOIDS NEG (NEG); COCAINE NEG (NEG); METHADONE NEG (NEG); OPIATES NEG (NEG); PHENCYCLIDINE NEG (NEG)
[2020-07-13 14:43] LABS: BACTERIA,URINE 0 /HPF (0-FEW); BILIRUBIN,URINE NEG (NEG); CLARITY,URINE CLEAR; COLOR,URINE YELLOW; GLUCOSE,URINE 100 mg/dL (NEG); NITRITE,URINE NEG (NEG); UROBILINOGEN,URINE 0.2 mg/dL (0.2 mg/dL)
[2020-07-13 14:44] LABS: AMPHETAMINE/METHAMPHETAMINE NEG (NEG)
[2020-07-13 14:46] LABS: ALBUMIN 2.8 g/dL (3.4-5.0); ALBUMIN/GLOBULIN RATIO 0.8 (1.0-1.7); TOTAL BILIRUBIN 0.2 mg/dL (0.2-1.0); TOTAL PROTEIN 6.1 g/dL (6.4-8.2)
--- NOTE | 2020-07-13 15:00 | PHYS DOC ---
Past History Past Medical History: CAD, Diabetes, Hypertension Past Surgical History: Appendectomy Additional Past Surgical Histo: ABD HERNIA REPAIR CHILD Alcohol Use: None Drug Use: None General Adult EDM: Chief Complaint: ALTERED MENTAL STATUS HPI: HPI: 85 yo F, daughter and granddaughter present in ED and are concerned with a missed stroke given patient's repetitive questioning and forgetfulness over the past week. Review of Systems: Review of Systems: Constitutional: Denies fever or chills Eyes: Denies change in visual acuity HENT: Denies nasal congestion or sore throat Respiratory: Denies cough or shortness of breath Cardiovascular: Denies chest pain or edema GI: Denies abdominal pain, nausea, vomiting, bloody stools or diarrhea : Denies dysuria Musculoskeletal: Denies back pain or joint pain Integument: Denies rash Neurologic: Denies headache, focal weakness or sensory changes Endocrine: Denies polyuria or polydipsia Lymphatic: Denies swollen glands Psychiatric: Denies depression or anxiety Allergies: Allergies: Allergies Coded Allergies Type Severity Reaction Last Updated Verified No Known Drug Allergies 07/13/20 No Physical Exam: PE: Constitutional: Well developed, well nourished, no acute distress, non-toxic appearance. HENT: Normocephalic, atraumatic, Eyes: EOMI, conjunctiva normal, no discharge. Neck: Normal range of motion, supple, Cardiovascular: S1/2 present, regular rhythm Lungs & Thorax: Speaking in full sentences, bilateral equal chest rise, no tachypnea or increased work of breathing Abdomen: soft, no tenderness, Skin: Warm, dry, no erythema, no rash. [] Back: No tenderness, no CVA tenderness. [] Extremities: No tenderness, no cyanosis, no edema Neurologic: Alert and oriented X 3, normal motor function, normal sensory funct ion, no focal deficits noted. [] Psychologic: Affect normal, judgement normal, mood normal. [] Current Patient Data: Labs: Laboratory Tests Test 07/13/20 14:05 07/13/20 14:10 Urine Collection Type Unknown Urine Color Yellow Urine Clarity Clear Urine pH 6.0 Urine Specific [place] 1.025 Urine Protein 30 mg/dl (NEG-TRACE) Urine Glucose (UA) 100 mg/dL (NEG) Urine Ketones (Stick) Neg mg/dL (NEG) Urine Blood Neg (NEG) Urine Nitrite Neg (NEG) Urine Bilirubin Neg (NEG) Urine Urobilinogen Dipstick 0.2 mg/dL (0.2 mg/dL) Urine Leukocyte Esterase Neg (NEG) Urine RBC 3-5 /HPF (0-2) Urine WBC 1-4 /HPF (0-4) Urine Squamous Epithelial Cells None /LPF Urine Bacteria 0 /HPF (0-FEW) Urine Opiates Screen Neg (NEG) Urine Methadone Screen Neg (NEG) Urine Barbiturates Neg (NEG) Urine Phencyclidine Screen Neg (NEG) Urine Amphetamine/Methamphetamine Neg (NEG) Urine Benzodiazepines Screen Neg (NEG) Urine Cocaine Screen Neg (NEG) Urine Cannabinoids Screen Neg (NEG) Urine Ethyl Alcohol Neg (NEG) White Blood Count 5.1 x10^3/uL (4.0-11.0) Red Blood Count 3.99 x10^6/uL (3.50-5.40) Hemoglobin 11.1 g/dL (12.0-15.5) L Hematocrit 34.6 % (36.0-47.0) L Mean Corpuscular Volume 87 fL (79-100) Mean Corpuscular Hemoglobin 28 pg (25-35) Mean Corpuscular Hemoglobin Concent 32 g/dL (31-37) Red Cell Distribution Width 13.4 % (11.5-14.5) Platelet Count 297 x10^3/uL (140-400) Neutrophils (%) (Auto) 67 % (31-73) Lymphocytes (%) (Auto) 22 % (24-48) L Monocytes (%) (Auto) 8 % (0-9) Eosinophils (%) (Auto) 3 % (0-3) Basophils (%) (Auto) 1 % (0-3) Neutrophils # (Auto) 3.4 x10^3uL (1.8-7.7) Lymphocytes # (Auto) 1.1 x10^3/uL (1.0-4.8) Monocytes # (Auto) 0.4 x10^3/uL (0.0-1.1) Eosinophils # (Auto) 0.1 x10^3/uL (0.0-0.7) Basophils # (Auto) 0.0 x10^3/uL (0.0-0.2) Sodium Level 141 mmol/L (136-145) Potassium Level 4.0 mmol/L (3.5-5.1) Chloride Level 106 mmol/L (98-107) Carbon Dioxide Level 26 mmol/L (21-32) Anion Gap 9 (6-14) Blood Urea Nitrogen 21 mg/dL (7-20) H Creatinine 1.4 mg/dL (0.6-1.0) H Estimated GFR (Cockcroft-Gault) 35.9 BUN/Creatinine Ratio 15 (6-20) Glucose Level 211 mg/dL (70-99) H Calcium Level 9.3 mg/dL (8.5-10.1) Total Bilirubin 0.2 mg/dL (0.2-1.0) Aspartate Amino Transferase (AST) 17 U/L (15-37) Alanine Aminotransferase (ALT) 13 U/L (14-59) L Alkaline Phosphatase 81 U/L (46-116) Total Protein 6.1 g/dL (6.4-8.2) L Albumin 2.8 g/dL (3.4-5.0) L Albumin/Globulin Ratio 0.8 (1.0-1.7) L Vital Signs: Vital Signs Date Time Temp Pulse Resp B/P (MAP) Pulse Ox O2 Delivery O2 Flow Rate FiO2 07/13/20 14:16 172/75 (107) 07/13/20 13:08 98.0 73 22 96 Room Air EKG: EKG: [] Radiology/Procedures: Radiology/Procedures: IMAGING REPORT Signed PATIENT: MONSTER POLLARD ACCOUNT: [id number] : 1935 LOCATION: ER AGE: 85 SEX: F EXAM STATUS: REG ER ORD. PHYSICIAN: LASHON MORAN DO REASON: confusion, blurry vision PROCEDURE: CT HEAD WO CONTRAST Examination: CT ORBITS/SELLA WITHOUT CONTRAST, CT HEAD/BRAIN WO History: Reason: confusion, blurry vision / Spl. Instructions: / History: Comparison/Correlation: None Findings: Axial images of the head and orbits were obtained. Sagittal and coronal reformatted images of the orbits were provided. Advanced atrophy and chronic ischemic changes within white matter is noted. Right occipital lobe acute infarct again seen and is slightly less edematous appearance. No hemorrhagic transformation is identified. No significant change in mass effect. No new infarcts. Old left external capsule lacunar infarct noted. Orbits are intact. Globes and optic nerves are unremarkable. Extraocular muscles are normal. Temporomandibular joints are unremarkable. Dextroconvexity of the bony nasal septum identified. Impression: Right occipital lobe infarct again identified. It is somewhat less edematous appearance as compared to previous exam. No intracranial hemorrhage. The globes and optic nerves are unremarkable. Orbits are unremarkable. Electronically signed by: Suman Cantor MD (07/13/2020 1:51 PM) [id number] DICTATED AND SIGNED BY: SUMAN CANTOR MD DATE: 07/13/20 1348 CC: CAIN CONSTANTINO MD; LASHON MORAN DO ~MTH0 0 IMAGING REPORT Signed PATIENT: MONSTER POLLARD ACCOUNT: [id number] : 1935 LOCATION: ER AGE: 85 SEX: F EXAM STATUS: REG ER ORD. PHYSICIAN: LASHON MORAN DO REASON: confusion PROCEDURE: CHEST AP ONLY Examination: XR CHEST 1V History: Reason: confusion / Spl. Instructions: / History: Comparison/Correlation: 07/09/2020 Findings: Frontal view chest was obtained. Heart size is normal. No pneumoth orax. Mild pulmonary hyperinflation may be present but similar to prior exam. No new infiltrate. No definite effusion. Minimal costophrenic angle blunting which probably represents pleural thickening is evident. Impression: No active disease. Electronically signed by: Suman Cantor MD (07/13/2020 1:52 PM) [id number] DICTATED AND SIGNED BY: SUMAN CANTOR MD DATE: 07/13/20 1351 CC: CAIN CONSTANTINO MD; LASHON MORAN DO ~MTH0 0 IMAGING REPORT Signed PATIENT: MONSTER POLLARD ACCOUNT: [id number] : 1935 LOCATION: ER AGE: 85 SEX: F EXAM STATUS: REG ER ORD. PHYSICIAN: LASHON MORAN DO REASON: confusion PROCEDURE: CHEST AP ONLY Examination: XR CHEST 1V History: Reason: confusion / Spl. Instructions: / History: Comparison/Correlation: 07/09/2020 Findings: Frontal view chest was obtained. Heart size is normal. No pneumothorax. Mild pulmonary hyperinflation may be present but similar to prior exam. No new infiltrate. No definite effusion. Minimal costophrenic angle blunting which probably represents pleural thickening is evident. Impression: No active disease. Electronically signed by: Suman Cantor MD (07/13/2020 1:52 PM) [id number] DICTATED AND SIGNED BY: SUMAN CANTOR MD DATE: 07/13/20 1354 CC: CAIN CONSTANTINO MD; JESSILASHON DO ~MTH0 0 Heart Score: Risk Factors: Risk Factors: DM, Current or recent (<one month) smoker, HTN, HLP, family history of CAD, obesity. Risk Scores: Score 0 - 3: 2.5% MACE over next 6 weeks - Discharge Home Score 4 - 6: 20.3% MACE over next 6 weeks - Admit for Clinical Observation Score 7 - 10: 72.7% MACE over next 6 weeks - Early Invasive Strategies Course & Med Decision Making: Course & Med Decision Making Pertinent Labs and Imaging studies reviewed. (See chart for details) Labs show ckd. U/A with no bacteria, negative nitrites/LE. CT head showing old infarct previously seen on imaging-I discussed this with pts' pcp Dr. Johnson. I offered an inpatient admission for long-term care facility placement. Patient's daughter is DURABLE POWER OF PLATE PAINTER and declines this option. Patient is to go home with her granddaughter who is a trauma RN -she is assisting w/obtaining RECEIVING LEAD services and is helping with daily care of pt. I do suspect some underlying dementia. Will dc home w/strict ED return precautions were given for facial droop, extremity weakness, fall or head injury or sudden vision loss. Encouraged urgent outpatient follow-up with PMD and neurology for dementia evaluation. Life-threatening processes were considered but are low suspicion at this time, given history and physical exam. Pt was educated on all prescription medications and adverse effects. All patient's questions were answered and pt was stable at time of discharge. Life/limb-threatening differential includes but is not limited to, acute angle- closure glaucoma, uveitis, corneal abrasion, CRVO/CRAO, PRES, retinal detachment, vitreous hemorrhage, temporal arteritis, optic neuritis, high- altitude retinopathy foreign body, globe rupture, episcleritis, corneal ulcer, hyphema or empyema, orbital cellulitis, orbital hematoma, lens dislocation or orbital wall fracture. I spoken with the patient and her caregivers. I explained the patient's condition, diagnoses and treatment plan based on the information available to me at this time. I have answered the patient and her caregiver's questions and addressed any concerns. The patient and her caregivers have a good understanding of patient's diagnosis, condition and treatment plan as can be expected at this point. Vital signs have been stable. Patient's condition is stable and appropriate for discharge from the emergency department. Patient will pursue further outpatient evaluation with primary care physician or other designated or consulting physician as outlined in the discharge instructions. The patient and/or caregivers are agreeable to this plan of care and follow-up instructions have been explained in detail. The patient and/or caregivers have received these instructions in written form and have expressed an understanding of the discharge instructions. The patient and/or caregivers are aware that any significant change of condition or worsening of symptoms should prompt immediate return to this or the closest emergency department or call to [id number] Yamilet Disclaimer: Yamilet Disclaimer: This electronic medical record was generated, in whole or in part, using a voice recognition dictation system. Departure Departure: Impression: Primary Impression: CKD (chronic kidney disease) Additional Impression: Forgetfulness Disposition: 01 DC HOME SELF CARE/HOMELESS Condition: STABLE Referrals: CAIN CONSTANTINO MD (PCP) in 1-2 weeks Patient Instructions: Dementia, Kidney Failure Additional Instructions: FOLLOW UP WITH NEUROLOGY: Brianda Farley MD [address] [place] [address] [address] [place] [address] [address] [place] [address] EMERGENCY DEPARTMENT GENERAL DISCHARGE INSTRUCTIONS Thank you for coming to [facility] (ED) today and trusting us with you care. We trust that you had a positivie experience in our Emergency Department. If you wish to speak to the department management, you may call the director at [phone]. YOUR FOLLOW UP INSTRUCTIONS ARE FOLLOWS: 1. Do you have a private Doctor? If you do not have a private doctor, please ask for a resource list of physicians or clinics that may be able to assist you with follow up care. 2. The Emergency Physician has interpreted your x-rays. The X-Ray specialist will also review them. If there is a change in the findings, you will be notified in 48 hours when at all possible. 3. A lab test or culture has been done, your results will be reviewed and you will be notified if you need a change in treatment. ADDITIONAL INSTRUCTIONS AND INFORMATION: 1. Your care today has been supervised by a physician who is specially trained in emergency care. Many problems require more than one evaluation for a complete diagnosis and treatment. We recommend that you schedule your follow up appointment as recommended to ensure complete treatment of you illness or injury. If you are unable to obtain follow up care and continue to have a problem, or if your condition worsens, we recommend that you return to the ED. 2. We are not able to safely determine your condition over the phone nor are we able to give sound medical advice over the phone. For these safety reasons, if you call for medical advice we will ask you to come to the ED for further evaluation. 3. If you have any questions regarding these discharge instructions please call the ED at [phone]. SAFETY INFORMATION: In the interest of safety, wellness, and injury prevention; we encourage you to wear your sealbelt, if you smoke; quite smoking, and we encourage family to use a protective helmet for bicycling and other sporting events that present an increased risk for head injury. IF YOUR SYMPTOMS WORSEN OR NEW SYMPTOMS DEVELOP, OR YOU HAVE CONCERNS ABOUT YOUR CONDITION; OR IF YOUR CONDITION WORSENS WHILE YOU ARE WAITING FOR YOUR FOLLOW UP APPOINTMENT; EITHER CONTACT YOUR PRIMARY CARE DOCTOR, THE PHYSICIAN WHOSE NAME AND NUMBER YOU WERE GIVEN, OR RETURN TO THE ED IMMEDIATELY. LASHON MORAN DO Jul 13, 2020 15:00
[2020-07-13 15:40] VITALS: BP 172/75
== END 2020-07-13 15:50 | disposition home or self-care (01) ==
LOC: ER 12:49
DX: I12.9 Hypertensive chronic kidney disease with stage 1 through stage 4 chronic kidney disease, or unspecified chronic kidney disease (principal); E11.22 Type 2 diabetes mellitus with diabetic chronic kidney disease; N18.9 Chronic kidney disease, unspecified; I25.10 Atherosclerotic heart disease of native coronary artery without angina pectoris; R41.3 Other amnesia
CPT/HCPCS: 36415; 70450; 70480; 71045; 80053; 80307; 81001; 85025; 99285-25

== ENCOUNTER → 2020-11-22 | Day surgery (SDC) | payer MEDICARE, OTHER ==
[~2020-11-22] MED LIST changes: +ACETAMINOPHEN 500 MG TABLET PO PRN; +ASPI-630 PO; +BALANCED SALT IRRIG SOLN NO.2 500 ML IO ONE; +BENZONATATE 100 MG CAPSULE. PO PRN; +BRIMONIDINE 0.2% OPHTH SOLUTION 5ML BOTTLE. OS ONE; +CEFUROXIME OPHTH 4 MG/0.4 ML SYRINGE. OS ONE; +CHLO25TA9 PO; +CHONDROIT-SOD-HYALURONATE KIT. OS ONE; +CYCLOPENTOLATE 1% OPTH SOLUTION 2ML BOTTLE. OS PRN; +IBUPROFEN 200 MG TABLET PO PRN; +IPRATRPIUM/ALBUTEROL 0.5/2.5MG 3 ML NEBU. NEB PRN; +IV RINGERS SOLUTION,LACTATED 1,000 ML IV SCH; +LIDO/EPI IN BSS OPHTH 2.7 ML SYRINGE. OS ONE; +LIDO/EPI IN BSS OPHTH 4 ML SYRINGE. OS ONE; +LIDOCAINE 2% JELLY 6ML IN APPLICATOR. ONE; +LIDOCAINE 2% JELLY 6ML IN APPLICATOR. OS ONE; -LISI40TA PO; +LISI40TA6 PO; +LOSA100T2 PO; +METOPROLOL TARTRATE 5 MG/5 ML VIAL. ONE; +MIDAZOLAM HCL PF 2 MG/2 ML VIAL. IV ONE; +MIDAZOLAM HCL PF 2 MG/2 ML VIAL. ONE; +ONDANSETRON PF 4 MG/2 ML VIAL. IV PRN; +PHENYLEPHRINE 10% OPHTH SOLUTION 5ML BOTTLE. OS PRN; +POVIDONE-IODINE 5% OPHTH SOLUTION 30ML BOTTLE. OS ONE; +POVIDONE-IODINE 5% OPHTH SOLUTION 30ML BOTTLE. OS PRN; +PROPARACAINE 0.5% OPHTH SOLUTION 15ML BOTTLE. OS ONE; +PROPARACAINE 0.5% OPHTH SOLUTION 15ML BOTTLE. OS PRN; +prednisoLONE ACETATE 1% OPHTH SUSPENSION 5ML BOTTLE. OS ONE
[2020-11-22] MEDS: TROPICAMIDE 1% OPHTH SOLUTION 15ML BOTTLE. OS SCH ×3 (06:57→07:10)
[2020-11-22] MEDS: KETOROLAC TROMETHAMINE 0.5% OPHTH SOLUTION BOTTLE. OS SCH ×2 (06:58→07:09)
[2020-11-22] MEDS: PHENYLEPHRINE 2.5% OPHTH SOLUTION 2ML BOTTLE. OS SCH ×3 (06:58→07:10)
[2020-11-22] MEDS: TOBRAMYCIN 0.3% OPHTH SOLUTION 5ML BOTTLE. OS SCH ×2 (06:59→07:09)
--- NOTE | 2020-11-22 08:00 | PDOC4 ---
SURGEON: Bryson Bryan MD Date of Procedure: 11/22/20 PREOP Diagnosis Visually significant cataract: Left Eye OS POSTOP Diagnosis Same PROCEDURE: Phaco w/ posterior chamber IOL: Left Eye OS ANESTHESIA Deep forniceal periocular 2% Lidocaine jelly Magalis/retro bulbar block with 2% Lidocaine with 0.5% Marcaine DESCRIPTION OF PROCEDURE The risks, benefits, and alternatives were discussed with the patient who elected to proceed. Informed consent was obtained in writing and placed in the chart After anesthetizing the eye topically, the patient was taken to the operating room, and the operative eye was prepped and draped in the usual sterile fashion for ocular surgery. A wire lid speculum was placed. A 1-mm clear corneal paracentesis incision was created with the side-port blade at a position three o'clock hours clockwise from the temporal cornea. Then, 1% non-preserved Lidocaine with epinephrine was injected into the anterior chamber followed by viscoelastic. Cotton-tipped applicators were used to stabilize the globe, and a 2.4 mm keratome was used to create a self-sealing incision in clear cornea at the temporal limbus. The Utrata forceps were used to create a continuous curvilinear capsulorrhexis. Balanced saline solution was injected via cannula beneath the capsulorrhexis edge to hydrodissect the lens nucleus and cortex from the lens capsule. The phacoemulsification handpiece and a chopping instrument were then used to remove the lens nucleus. The remaining epinuclear material and cortex were removed with the irrigation/aspiration handpiece. Vis coelastic was used to re-inflate the lens capsule, and the intraocular lens was injected directly into the capsular bag. The corneal wound edges were hydrated with balanced salt solution on a cannula and the irrigation/aspiration handpiece was used to extract the remaining viscoelastic. Cefuroxime 0.1mg/ml / Vigamox 0.5% was injected into the anterior chamber intracamerally. The wounds were inspected and found to be watertight at an appropriate intraocular pressure. Topical antibiotic drops were placed on the corneal surface. LRI: No If Yes, Number [] Rolfe [] Length [] degrees Depth [] microns Incision Rolfe: 180 Toric Lens Rolfe [] Patch/shield with Maxitrol/Tobradex/Erythromycin ointment: Yes No Co-managed patients/postop examination stable for co-management with referring doctor. EBL EBL: None SPECIMANS COLLECTED Specimens Collected: None BRYSON BRYAN MD Nov 22, 2020 08:00
[2020-11-22 08:09] VITALS: BP 199/85
== END | disposition home or self-care (01) ==
LOC: SURG 06:09
PROVIDERS: ATTEND Ophthalmology
DX: E11.36 Type 2 diabetes mellitus with diabetic cataract (principal); H25.12 Age-related nuclear cataract, left eye; I13.0 Hypertensive heart and chronic kidney disease with heart failure and stage 1 through stage 4 chronic kidney disease, or unspecified chronic kidney disease; E11.22 Type 2 diabetes mellitus with diabetic chronic kidney disease; N18.30 Chronic kidney disease, stage 3 unspecified; I50.9 Heart failure, unspecified; E03.9 Hypothyroidism, unspecified; I25.10 Atherosclerotic heart disease of native coronary artery without angina pectoris; E11.65 Type 2 diabetes mellitus with hyperglycemia; I25.2 Old myocardial infarction; Z79.899 Other long term (current) drug therapy; Z87.440 Personal history of urinary (tract) infections; Z87.891 Personal history of nicotine dependence; Z79.84 Long term (current) use of oral hypoglycemic drugs; Z98.890 Other specified postprocedural states; Z79.82 Long term (current) use of aspirin; Z82.49 Family history of ischemic heart disease and other diseases of the circulatory system; Z86.73 Personal history of transient ischemic attack (TIA), and cerebral infarction without residual deficits
CPT/HCPCS: 66984; 82947; J2250; J3490; V2632